=== PATIENT | female | born 1930 | race African-American/Black ===

== ENCOUNTER 2017-02-07 14:15 | Emergency (ER) | payer OTHER ==
--- NOTE | 2017-02-07 14:26 | EDPHY ---
H & P Stated Complaint: htn - Personal History Current Tetanus/Diphtheria Vaccine: Yes - Medical/Surgical History Hx Asthma: No Hx Chronic Respiratory Disease: No Hx Diabetes: No Hx Cardiac Disease: No Hx Renal Disease: No Hx Cirrhosis: No Hx Alcoholism: No Hx HIV/AIDS: No Hx Splenectomy or Spleen Trauma: No Other PMH: htn, - Social History Smoking Status: Never smoked HPI/ROS: CHIEF COMPLAINT: Hypertension, spots in vision HISTORY OF PRESENT ILLNESS: The patient is an 86 y/o female with a history of hypertension complaining of high blood pressure and "spots in my eyes" onset this morning. She reports a history of sinus infections and complains of chronic nasal stuffiness, post-nasal drip, and sinus pressure in her forehead. She has experienced high blood pressure and the same eye symptoms previously when using an unknown OTC eye drop with sulfa in it 12 years ago. She was using a different drop in her right eye for sinus symptoms until last night and thinks this may have caused her current symptoms. This morning she measured her BP at home and found it to be around 200 systolic. She called her PCP and was advised to take a dose of the antihypertensive medication (diuretic?) she keeps on hand, but stopped using some time within the past month, on the advice of her PCP. A short time later her pressure decreased to 150s systolic, but she continued to have the same "funny feeling" she gets when her BP is elevated, so she came to the ED. She has a follow up PCP appointment in 6 days. She denies chest pain, shortness of breath, hematuria, current headache, confusion, difficulty with speech. numbness or weakness. REVIEW OF SYSTEMS: A ten point review of systems was performed and is negative with the exception of the items mentioned in the HPI. Occasional leg swelling. Past medical history: Hypertension, sinus infections, allergies Past surgical history: Hysterectomy, appendectomy, umbilical hernia repair, c- section Family history: noncontributory Social history: From [place]. Nonsmoker. Occasional wine. Lives alone in [place] at [facility]. Son also lives in [place]. Retired. PCP: Dr. Lopez General Appearance: Alert. Vital signs reviewed. Triage blood pressure 200/ 118. Eyes: Pupils equal and round, no conjunctival injection, no discharge. Anicteric. ENT, Mouth: Mucous membranes are moist, no oropharyngeal erythema or edema. Neck: No lymphadenopathy, supple. No JVD. Respiratory: Lungs are clear to auscultation; no wheezes, rales, or rhonchi. Cardiovascular: Regular rate and rhythm with occasional ectopy; no murmur, rub , or gallop. Gastrointestinal: Abdomen is soft and nontender, no masses or organomegaly, bowel sounds normal. Skin: Warm and dry, no rashes on exposed skin, normal color. Back: Nontender to palpation over the thoracolumbar spine. No CVAT. Extremities: No lower extremity edema, no calf tenderness or swelling. Neurological: Alert and oriented. Moving all four extremities easily and equally. PERRL. EOMI. Facial expressions symmetric. Tongue midline. Psychiatric: Normal affect. (Dominique Chance) Constitutional: Initial Vital Signs Temperature (C) 36.9 C 02/07/17 14:20 Heart Rate 86 02/07/17 14:20 Respiratory Rate 18 02/07/17 14:20 Blood Pressure 200/118 H 02/07/17 14:20 O2 Sat (%) 96 02/07/17 14:20 O2 Delivery Mode Room Air Allergies/Adverse Reactions: penicillin G Allergy (Verified 02/07/17 14:22) Sulfa (Sulfonamide Antibiotics) Allergy (Verified 02/07/17 14:22) Home Medications: Medication Instructions Recorded amLODIPine BESYLATE [Norvasc 2.5 2.5 mg PO DAILY #30 tab 02/07/17 mg (*)] Medical Decision Making - Diagnostics EKG Interpretation: ECG time 3:17 p.m., sinus rhythm with a rate of 81, borderline right axis deviation, borderline R-wave progression. No acute ST or T-wave changes. (Keshawn Monique) ED Course/Re-evaluation: [address] Chance pending CT scan chest x-ray blood work an ECG results. Patient's blood pressures done 179 over 93 without any treatment. 1600 no acute findings on the patient's CT. No acute findings on the ECG. Urinalysis is normal. Renal function is appropriate. I have discussed with Dr. Lopez ears territory sales manager medical. The patient was indeed taken off of her blood pressure medication on the with plan for being off for a month. She is taking with pressure daily is plan for follow-up. Dr. Lopez plan was for I blood pressure return with to start the patient on Norvasc. I will start the patient on 2.5 mg. patient will follow up next week for blood pressure recheck, return for worsening. I have also discussed this with the patient's son Joseluis. He understands the plan and will make sure that the patient both takes her medication and follows up with Dr. Lopez. (Keshawn Monique) Plan for IV, labs, UA, EKG, chest x-ray, and head CT--assess for end organ damage. The 12 lead EKG was interpreted by ED physician. See hard copy and/or "tracemaster" electronic copy for interpretation. I spoke with patient's son, Joseluis, who would like updates on her condition. Her care will be transferred to Dr. Monique at change of shift, 3 PM. (Dominique Chance) Differential Diagnosis: I considered a differential diagnosis that includes but is not limited to hypertensive emergency, hypertensive urgency, medication noncompliance, dietary indiscretion exacerbating hypertension, and untreated essential hypertension. ( Dominique Chance) - Data Points Laboratory Results: Laboratory Results 02/07/17 15:00 02/07/17 15:00 Departure - Departure Disposition: Home, Routine, Self-Care Clinical Impression: Hypertension Qualifiers: Hypertension type: essential hypertension Qualified Code(s): I10 - Essential ( primary) hypertension Condition: Good Instructions: Hypertension (ED) Additional Instructions: Start taking Norvasc every day in addition to your usual medications. Follow up with Dr. Lopez in 4-5 days for blood pressure recheck and medication evaluation. Return to the emergency depart for increasing headache, any chest pain, shortness of breath, or any other concerns. Referrals: Marisol Lopez MD [[facility] Primary Care Provider] - As per Instructions Prescriptions: amLODIPine BESYLATE [Norvasc 2.5 mg (*)] 2.5 mg PO DAILY #30 tab Report Scribed for: Dominique Chance Report Scribed by: Nikki Lazcano Date of Report: 02/07/17 Time of Report: 14:46 Physician Review and Approval Statement: 02/07/17 14:26 Portions of this note were transcribed by the medical transcription supervisor. I, Dr. Dominique Chance, personally performed the history, physical exam, and medical decision- making; and confirmed the accuracy of the information in the transcribed note. ( Dominique Chance)
[2017-02-07 14:56] LABS: COLOR PALE YELLOW; LEUKOCYTE ESTERASE,URINE NEGATIVE (NEGATIVE); NITRITE,URINE NEGATIVE (NEGATIVE)
--- NOTE | 2017-02-07 15:13 | CPEKG ---
Heart Rate: 81 RR Interval: 741 P-R Interval: 168 QRSD Interval: 80 QT Interval: 384 QTC Interval: 446 P Adel: 78 QRS Adel: 84 T Wave Adel: 75 EKG Severity - ABNORMAL ECG - EKG Impression: SINUS RHYTHM EKG Impression: JAY, CONSIDER BIATRIAL ABNORMALITIES EKG Impression: BORDERLINE RIGHT AXIS DEVIATION EKG Impression: BORDERLINE R WAVE PROGRESSION, ANTERIOR LEADS Electronically Signed By: Tim Bland 07-Feb-2017 20:55:15
[2017-02-07 15:18] LABS: % IMMATURE GRANULYOCYTES 0.2 % (0.0-1.1); ABSOLUTE IMMATURE GRANULOCYTES 0.01 10^3/uL (0.00-0.10); ADD DIFF? NO; ADD MORPH? NO; ADD SCAN? NO; ATYPICAL LYMPHOCYTE FLAG 20 (0-99); FRAGMENT RBC FLAG 0 (0-99); HEMATOCRIT 41.8 % (38.0-47.0); HEMOGLOBIN 14.2 g/dL (12.6-16.3); LEFT SHIFT FLG 0 (0-99); LIPEMIA HEMOLYSIS FLAG 90 (0-99); MEAN CELL HEMOGLOBIN 28.9 pg (27.9-34.1); MEAN PLATELET VOLUME 11.1 fL (8.7-11.7); PLATELET CLUMPS FLAG 0 (0-99); PLATELET COUNT 171 10^3/uL (150-400); RED BLOOD CELL COUNT 4.92 10^6/uL (4.18-5.33); RED CELL DISTRIBUTION WIDTH 13.5 % (11.5-15.2)
[2017-02-07 15:20] LABS: ANION GAP 15 mEq/L (8-16); CALCIUM 10.1 mg/dL (8.5-10.4); CARBON DIOXIDE 23 mEq/l (22-31); CHLORIDE 104 mEq/L (97-110); CREATININE 0.8 mg/dL (0.6-1.0); GLOMERULAR FILTRATION RATE > 60; GLUCOSE 95 mg/dL (70-100); POTASSIUM 3.6 mEq/L (3.5-5.2); SODIUM 142 mEq/L (134-144)
[2017-02-07 15:31] LABS: TROPONIN I 0.014 ng/mL (0.000-0.034)
[2017-02-07 16:12] VITALS: BP 179/86; PULSE 77; RESP 15; TEMP 97.2; O2SAT 95
== END 2017-02-07 17:02 | disposition home or self-care (01) ==
DX: I10 Essential (primary) hypertension (principal)